=== PATIENT | female | born 1950 | race Caucasian/White ===

== ENCOUNTER 2020-06-08 11:29 | Day surgery (SDC) | payer MEDICARE, OTHER, SELFPAY ==
[2020-06-08] MEDS: PROPARACAINE 0.5% OPHTH SOL 2 DROPS EYE-OP (12:34)
[2020-06-08] MEDS: CATARACT EYE COMPOUND (10 DROPS/SYRINGE) 3 DROPS EYE-OP (12:46)
[2020-06-08 12:49] VITALS: BP 136/84; PULSE 77; RESP 16; TEMP 36.9; O2SAT 96; BMI 30.2
--- NOTE | 2020-06-08 13:05 | P.OP_ITS ---
Operative Date/Time/Diagnoses Pre-op diagnosis: Nuclear Cataract Left eye Post-op diagnosis: same Procedure & Clinicians Same procedure as scheduled: Yes Surgeon: Chance Patiño Anesthesia Type: MAC +/- and Sedation Operative Notes Procedure in detail: Patient brought to the operating suite. Tetracaine drops placed in the left eye. Marking instrument was used to jon the vertical and horizontal meridians. Patient was prepped and draped in sterile manner. Wire lid speculum was placed in the eye. The marking instrument was used to jon the 80 degree meridian. Betadine drops were placed on the eye. This was irrigated. Lidocaine jelly was placed on the eye. A paracentesis port was created with a side-port blade. 0.1 mL 1% preservative free lidocaine was injected into the anterior chamber. The anterior chamber was deepened with viscoelastic. 2.6 mm keratome was used to create a temporal clear corneal incision. Cystotome and Utrata forceps were used to create continuous tear capsulorrhexis. Balanced salt solution was used to hydro dissect the nucleus. The phacoemulsification handpiece was inserted and the nucleus was removed using the stop and chop technique. The irrigation aspiration handpiece was inserted and the remaining cortex was removed. Anterior chamber was deepened with viscoelastic. An Ortega [id number] intraocular lens with a power of 7.5 was injected into the capsular bag. Irrigation aspiration handpiece was inserted and the remaining viscoelastic was removed. The lens was rotated to the 80 degree meridian. Incision was hydrated with balanced salt solution and found to be leak free with pressure with Weck- Aria sponges. 0.1 mL Vigamox injected anterior chamber. 0.3 mL Kenalog 10 mg was injected subconjunctivally. Lid speculum was removed. The patient left the operating room in excellent condition. Complications: none Post-operative Condition: stable Disposition: same day surgery
--- NOTE | 2020-06-08 13:05 | PM.PREOP ---
Pre-operative Note Interval Note History & Physical reviewed/Exam performed by Physician: Yes Changes to H&P: No
[2020-06-08] MEDS: MOXIFLOXACIN INJ 4 MG/0.8 ML VIAL 0.5 MG EYE-OP (13:24)
[2020-06-08] MEDS: LIDOCAINE 2% (GLYDO) 6 ML GEL TOP (13:24)
[2020-06-08] MEDS: CHONDROIDTIN/SOD HYALURONATE 1.05 ML SYRINGE INTRAOCULA (13:24)
[2020-06-08] MEDS: PHENYLEPHRINE/LIDOCAINE VIAL (OR) 0.2 ML EYE-OP (13:24)
[2020-06-08] MEDS: BALANCED SALT IRRIG SOLN NO.2 500 ML, EPINEPHrine 1 MG IRR (13:25)
[2020-06-08] MEDS: TETRACAINE 0.5% OPHTH DROPS 4 ML 2 DROPS EYE-OP (13:25)
[2020-06-08] MEDS: TRIAMCINOLONE 50 MG/5 ML VIAL INJ (13:25)
[2020-06-08 13:40] VITALS: BP 125/72; PULSE 94; RESP 16; TEMP 36.6; O2SAT 94
--- NOTE | 2020-06-08 13:43 | SUR.PHASEII ---
Pt very sleepy, arouses easily, VSS, drinking melissa anderson, called and updated.
[2020-06-08 14:04] VITALS: BP 149/86; PULSE 68; RESP 16; TEMP 36.8; O2SAT 98
--- NOTE | 2020-06-08 14:06 | SUR.PHASEII ---
Pt ready to go, left unit in stable condition.
== END 2020-06-08 14:11 | disposition home or self-care (01) ==
PROVIDERS: PCP Family Medicine; Referring Provider Family Medicine; Visit Provider Ophthalmology
PROC: (CPT 66984; principal; 2020-06-08 13:45)
DX: H25.12 Age-related nuclear cataract, left eye (principal)
CPT/HCPCS: 66984; J0171; J2250; J3301; V2787

== ENCOUNTER 2020-06-22 10:10 | Day surgery (SDC) | payer MEDICARE, OTHER, SELFPAY ==
[2020-06-22] MEDS: PROPARACAINE 0.5% OPHTH SOL 2 DROPS EYE-OP (11:02)
[2020-06-22] MEDS: CATARACT EYE COMPOUND (10 DROPS/SYRINGE) 3 DROPS EYE-OP (11:02)
[2020-06-22 11:10] VITALS: BP 138/80; PULSE 65; RESP 16; TEMP 37; O2SAT 99; BMI 29.1
--- NOTE | 2020-06-22 11:33 | P.OP_ITS ---
Operative Date/Time/Diagnoses Pre-op diagnosis: Nuclear cataract right eye Procedure & Clinicians Procedure: Cataract Surgery Same procedure as scheduled: Yes Surgeon: Chance Patiño Anesthesia Type: MAC +/- and Sedation Operative Notes Procedure in detail: Patient brought to the operating suite. Tetracaine drops placed in the right eye. Marking instrument was used to jon vertical and horizontal meridians. Patient was prepped and draped in sterile manner. Wire lid speculum was placed in the eye. Marking instrument was used to jon 80 degree meridian. Betadine drops were placed on the eye. This was irrigated. Lidocaine jelly was placed on the eye. A paracentesis port was created with a side-port blade. 0.1 mL 1% preservative free lidocaine was injected into the anterior chamber. The anterior chamber was deepened with viscoelastic. 2.6 mm keratome was used to create a temporal clear corneal incision. Cystotome and Utrata forceps were used to create continuous tear capsulorrhexis. Balanced salt solution was used to hydro dissect the nucleus. The phacoemulsification handpiece was inserted and the nucleus was removed using the stop and chop technique. The irrigation aspiration handpiece was inserted and the remaining cortex was removed. Anterior chamber was deepened with viscoelastic. An Ortega [id number] intraocular lens with a power of 9.0 was injected into the capsular bag. Irrigation aspiration handpiece was inserted and the remaining viscoelastic was removed. The lens was rotated to the 80 degree meridian. Incision was hydrated with balanced salt solution and found to be leak free with pressure with Weck- Aria sponges. 0.1 mL Vigamox injected anterior chamber. 0.3 mL Kenalog 10 mg was injected subconjunctivally. Lid speculum was removed. The patient left the operating room in excellent condition. Complications: none Post-operative Condition: stable Disposition: same day surgery
--- NOTE | 2020-06-22 11:33 | PM.PREOP ---
Pre-operative Note Interval Note History & Physical reviewed/Exam performed by Physician: Yes Changes to H&P: No
[2020-06-22] MEDS: MOXIFLOXACIN INJ 4 MG/0.8 ML VIAL 0.5 MG EYE-OP (11:56)
[2020-06-22] MEDS: PHENYLEPHRINE/LIDOCAINE VIAL (OR) 0.2 ML EYE-OP (11:56)
[2020-06-22] MEDS: TRIAMCINOLONE 50 MG/5 ML VIAL INJ (11:57)
[2020-06-22] MEDS: TETRACAINE 0.5% OPHTH DROPS 4 ML 2 DROPS EYE-OP (11:57)
[2020-06-22] MEDS: LIDOCAINE 2% (GLYDO) 6 ML GEL TOP (11:57)
[2020-06-22] MEDS: CHONDROIDTIN/SOD HYALURONATE 1.05 ML SYRINGE INTRAOCULA (11:57)
[2020-06-22] MEDS: BALANCED SALT IRRIG SOLN NO.2 500 ML, EPINEPHrine 1 MG IRR (11:58)
[2020-06-22 12:05] VITALS: BP 126/76; PULSE 63; RESP 16; TEMP 36.4; O2SAT 98
[2020-06-22 12:30] VITALS: BP 129/79; PULSE 60; RESP 16; TEMP 37; O2SAT 93
--- NOTE | 2020-06-22 13:48 | SUR.PHASEII ---
1240 late note Patient enjoyed a cup of tea, states that she is a little sleepy but otherwise feels fine. Encouraged her to nap after eating some food. Stable.
== END 2020-06-22 12:40 | disposition home or self-care (01) ==
LOC: OR 10:23
PROVIDERS: PCP Family Medicine; Referring Provider Family Medicine; Visit Provider Ophthalmology
PROC: (CPT 66984; principal; 2020-06-22 12:15)
DX: H25.11 Age-related nuclear cataract, right eye (principal)
CPT/HCPCS: 66984; J0171; J2250; J3010; J3301; V2787